=== PATIENT | female | born 1995 | race Two or more races ===

== ENCOUNTER → 2022-06-22 08:45 | Outpatient (BNVA) | payer OTHER, SELFPAY | PROVIDERS: Visit Provider Physician Assistant | DX: S09.91XA Unspecified injury of ear, initial encounter (principal); W50.0XXA Accidental hit or strike by another person, initial encounter; H60.11 Cellulitis of right external ear | CPT/HCPCS: 99203 ==

== ENCOUNTER → 2022-06-25 09:18 | Outpatient (BNVA) | payer OTHER, SELFPAY | PROVIDERS: Visit Provider Physician Assistant Medical | DX: S09.91XA Unspecified injury of ear, initial encounter (principal); W50.0XXA Accidental hit or strike by another person, initial encounter; H60.11 Cellulitis of right external ear | CPT/HCPCS: 99213 ==